=== PATIENT | female | born 2000 | race Two or more races ===

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

== ENCOUNTER 2021-04-08 20:13 | Emergency (ER) | payer OTHER ==
[~2021-04-08] VITALS: Ht 160 cm; Wt 61.2 kg
[2021-04-08] MEDS ORDERED: ZITHROMAX500 MG PO (22:28)
== END 2021-04-08 22:41 | disposition home or self-care (01) ==
LOC: ER 20:13 → EMR PED 20:15 → ER 20:15 → EMR PED 22:41
DX: B34.8 Other viral infections of unspecified site (principal)

== ENCOUNTER 2021-07-28 17:05 | Emergency (ER) | payer OTHER ==
[~2021-07-28] VITALS: Ht 162.6 cm; Wt 61.2 kg
[~2021-07-28 17:05] MED LIST changes: +ZITHROMAX500 MG PO
== END 2021-07-28 19:41 | disposition home or self-care (01) ==
LOC: ER 17:05 → EMR PED 17:07 → ER 17:07 → EMR PED 19:41
DX: R21 Rash and other nonspecific skin eruption (principal)

== ENCOUNTER 2021-09-03 17:25 | Emergency (ER) | payer OTHER ==
[~2021-09-03] VITALS: Ht 162.6 cm; Wt 61.2 kg
[2021-09-03] MEDS ORDERED: CLOTRIMAZOLE-BE15 G1 TOP (18:21)
== END 2021-09-03 18:59 | disposition home or self-care (01) ==
LOC: ER 17:25 → EMR PED 17:28 → ER 17:28 → EMR PED 18:59
DX: B35.4 Tinea corporis (principal)

== ENCOUNTER 2021-09-23 11:42 | Emergency (ER) | payer OTHER ==
[~2021-09-23] VITALS: Ht 162.6 cm; Wt 61.2 kg
[~2021-09-23 11:42] MED LIST changes: +CLOTRIMAZOLE-BE15 G1 TOP
== END 2021-09-23 20:30 | disposition home or self-care (01) ==
LOC: ER 11:42 → EMR PED 11:42
DX: B34.9 Viral infection, unspecified (principal)

== ENCOUNTER → 2022-08-11 | Emergency (ER) | payer OTHER ==
[~2022-08-11] VITALS: Ht 162.6 cm; Wt 61.2 kg
== END | disposition home or self-care (01) ==
LOC: ER 21:57
DX: J03.90 Acute tonsillitis, unspecified (principal)

== ENCOUNTER 2022-09-05 00:54 | Emergency (ER) | payer OTHER ==
[~2022-09-05] VITALS: Ht 162.6 cm; Wt 61.2 kg
== END 2022-09-05 06:41 | disposition left against medical advice (07) ==
LOC: ER 00:54
DX: R06.03 Acute respiratory distress (principal); R51.9 Headache, unspecified

== ENCOUNTER 2022-10-17 14:14 | Emergency (ER) | payer OTHER ==
[~2022-10-17] VITALS: Ht 162.6 cm; Wt 61.2 kg
== END 2022-10-17 17:22 | disposition home or self-care (01) ==
LOC: ER 14:14
DX: J06.9 Acute upper respiratory infection, unspecified (principal)

== ENCOUNTER 2022-11-08 09:27 | Emergency (ER) | payer OTHER ==
[~2022-11-08] VITALS: Ht 162.6 cm; Wt 61.2 kg
== END 2022-11-08 11:34 | disposition home or self-care (01) ==
LOC: ER 09:27
DX: M62.838 Other muscle spasm (principal); M54.2 Cervicalgia

== ENCOUNTER 2022-11-13 23:51 | Emergency (ER) | payer OTHER ==
[~2022-11-13] VITALS: Ht 162.6 cm; Wt 61.2 kg
[2022-11-14] MEDS ORDERED: FLONASE16 GM NASAL (03:10)
[2022-11-14] MEDS ORDERED: PHENAGIL TABLE1 EACH PO (03:10)
[2022-11-14] MEDS ORDERED: ORASEP SPRAY30 ML MM (03:10)
== END 2022-11-14 03:15 ==
LOC: ER 23:52
DX: J30.9 Allergic rhinitis, unspecified (principal)

== ENCOUNTER 2022-12-22 20:18 | Emergency (ER) | payer OTHER ==
[~2022-12-22] VITALS: Ht 167.6 cm; Wt 65.8 kg
[~2022-12-22 20:18] MED LIST changes: +FLONASE16 GM NASAL; +ORASEP SPRAY30 ML MM; +PHENAGIL TABLE1 EACH PO
== END 2022-12-23 02:44 | disposition home or self-care (01) ==
LOC: ER 20:19
DX: J03.90 Acute tonsillitis, unspecified (principal)

== ENCOUNTER 2023-01-23 22:50 | Emergency (ER) | payer OTHER ==
[~2023-01-23] VITALS: Ht 162.6 cm; Wt 61.2 kg
== END 2023-01-24 | disposition left against medical advice (07) ==
LOC: ER 22:50
DX: Z53.21 Procedure and treatment not carried out due to patient leaving prior to being seen by health care provider (principal)

== ENCOUNTER 2023-03-09 22:00 | Emergency (ER) | payer OTHER ==
[~2023-03-09] VITALS: Ht 162.6 cm; Wt 61.2 kg
== END 2023-03-10 10:19 | disposition home or self-care (01) ==
LOC: ER 22:01
DX: J06.9 Acute upper respiratory infection, unspecified (principal); Z20.822 Contact with and (suspected) exposure to COVID-19

== ENCOUNTER → 2024-09-29 | Emergency (ER) | payer OTHER | END | disposition left against medical advice (07) | LOC: ER 16:43 | DX: Z53.21 Procedure and treatment not carried out due to patient leaving prior to being seen by health care provider (principal) ==